=== PATIENT | female | born 1950 | race Two or more races ===

== ENCOUNTER 2024-01-14 10:48 | Outpatient (CLI) | payer MEDICARE ==
[2024-01-14 11:04] LABS: BASOPHILS % (AUTO) 0.5 %; EOSINOPHILS # (AUTO) 0.1 10^3/uL (0.0-0.7); EOSINOPHILS % (AUTO) 0.7 %; HGB - HEMOGLOBIN 12.9 g/dL (12.0-16.0); LYMPHOCYTES # (AUTO) 1.2 10^3/uL (1.5-3.5); MEAN CORPUSCULAR HEMOGLOBIN 27.7 pg (27.0-31.0); MEAN CORPUSCULAR HGB CONC 30.7 g/dL (32.0-36.0); MEAN CORPUSCULAR VOLUME 90.3 fL (81.0-99.0); MEAN PLATELET VOLUME 9.9 fL (7.9-10.8); MONOCYTES # (AUTO) 0.5 10^3/uL (0.0-1.0); MONOCYTES % (AUTO) 6.4 %; NEUTROPHILS # (AUTO) 6.5 10^3/uL (1.5-6.6); NEUTROPHILS % (AUTO) 78.3 %; PLT - PLATELET COUNT 249 10^3/uL (130-450); RED BLOOD COUNT 4.65 10^6/uL (4.20-5.40); RED CELL DISTRIBUTION WIDTH 13.3 % (12.0-15.0); WHITE BLOOD COUNT 8.3 x10^3/uL (4.8-10.8)
[2024-01-14 11:22] LABS: ALBUMIN 4.3 g/dL (3.2-5.5); ALBUMIN/GLOBULIN RATIO 1.4 (1.0-2.2); ALKALINE PHOSPHATASE 102 IU/L (42-121); ALT ALANINE AMINOTRANSFERASE 11 IU/L (10-60); AST ASPARTATE AMINOTRANSFERASE 15 IU/L (10-42); BILIRUBIN,TOTAL 0.5 mg/dL (0.2-1.0); BUN - BLOOD UREA NITROGEN 16 mg/dL (6-20); CALCIUM 10.1 mg/dL (8.5-10.3); CARBON DIOXIDE - CO2 28 mmol/L (21-32); CHLORIDE 104 mmol/L (101-111); CHOLESTEROL 209 mg/dL; CREATININE 0.7 mg/dL (0.6-1.3); GFR - MDRD 82 (>89); GLUCOSE 114 mg/dL (74-104); HDL CHOLESTEROL 70 mg/dL; LDL CHOLESTEROL,CALCULATED 103 mg/dL; LDL/HDL RATIO 1.5 (<4.4); POTASSIUM 4.4 mmol/L (3.5-4.5); SODIUM 138 mmol/L (135-145); TOTAL PROTEIN 7.3 g/dL (6.4-8.9); TRIGLYCERIDES 181 mg/dL (48-352); VLDL CHOLESTEROL 36 mg/dL
[2024-01-14 11:33] LABS: THYROID STIMULATING HORMONE 0.69 uIU/mL (0.34-5.60)
[2024-01-14 12:04] LABS: ESTIMATED AVERAGE GLUCOSE 126 mg/dL (70-100)
--- NOTE | 2024-01-14 14:33 | XRAY Report ---
PROCEDURE: Knee 1-2V BL INDICATIONS: BILATERAL DJD TECHNIQUE: 2 views of the knee(s) were acquired. COMPARISON: None. FINDINGS: Bones: No fractures or dislocations. No suspicious bony lesions. The left knee demonstrates mild to moderate tricompartmental arthritic change most severe medially. Minimal periarticular osteophytes are present without erosions. Similar appearance is noted on the right also most severe medially. Bi lateral minimal patellar osteophytes are present. Soft tissues: No knee joint effusion. No suspicious soft tissue calcifications or masses. 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 Reviewed by: Precious Bryson MD on 01/14/2024 2:32 PM PDT Approved by: Precious Bryson MD on 01/14/2024 2:32 PM PDT Station ID: [id number]
--- NOTE | 2024-01-14 14:51 | XRAY Report ---
PROCEDURE: Chest 2V INDICATIONS: PLEURAL EFFUSION TECHNIQUE: 2 views of the chest were acquired. COMPARISON: None. FINDINGS: Surgical changes and devices: None. Lungs and pleura: Mild left and minimal right pleural effusions. Minimal patchy opacities are presen t in the right base and retrocardiac region. Mediastinum: Mediastinal contours appear normal. Heart size is normal. Bones and chest wall: No suspicious bony lesions. Overlying soft tissues appear unremarkable. IMPRESSION: Minimal to mild bilateral effusions with bilateral patchy opacities as above suspicious for developin g pneumonia. Reviewed by: Precious Bryson MD on 01/14/2024 2:49 PM PDT Approved by: Precious Bryson MD on 01/14/2024 2:49 PM PDT Station ID: [id number]
== END 2024-01-14 10:49 | disposition home or self-care (01) ==
LOC: LAB 10:48
PROVIDERS: ATTEND Physician Assistant Medical
DX: Z13.9 Encounter for screening, unspecified (principal); M17.0 Bilateral primary osteoarthritis of knee; J90 Pleural effusion, not elsewhere classified
CPT/HCPCS: 36415; 80053; 80061; 83036; 83721; 84443; 85025

== ENCOUNTER 2024-02-04 16:05 | Outpatient (CLI) | payer MEDICARE ==
--- NOTE | 2024-02-06 10:34 | CT Report ---
PROCEDURE: Chest WO INDICATIONS: PLEURAL EFFUSION TECHNIQUE: A CT scan of the chest was performed. Intravenous contrast media was not administered. Images were re corded and evaluated at appropriate window settings. Reformats: axial MIP of the chest, coronal and s agittal. For radiation dose reduction, the following was used: automated exposure control, adjustment of mA and/or kV according to patient size. COMPARISON: Chest x-ray, 01/14/2024. FINDINGS: Image quality: Diagnostic. Chest wall and lower neck: There is a 1.7 cm nodule in the posterior right thyroid lobe. No axillary or supraclavicular adenopathy by size. Right mastectomy. Bilateral breast implants. Lungs and pleura: Small loculated left pleural effusion and trace right protrusion with associated pl eural thickening. There is airspace opacity in the left lower lobe. Subpleural scars and atelectasis in lingula, right middle lobe and right lower lobe. There is a 2.6 mm lung nodule in the left lower lobe, most likely r ound atelectasis. A 0.7 cm nodule is seen in the right lower lobe (series 4 image 54). No consolidation. No pleural effusions. No pneumothorax. No suspicious pulmonary nodules which requi re follow up. Mediastinum: Heart size is normal. No pericardial effusion. No large vessel abnormality. There are mi ldly enlarged mediastinal nodes. A 1 cm right paratracheal lymph node is identified. There is a 1.1 c m subcarinal lymph node. Bones: There are sclerotic lesions in L1 and L2 vertebral bodies. Upper Abdomen: Unremarkable. IMPRESSION: 1. Small loculated left effusion and trace right pleural effusion with associated pleural thickening. 2. Airspace opacity in the left lower lobe compatible with pneumonia or aspiration. 3. Round atelectasis in the left lower lobe. 4. A 0.7 cm nodule in the right lower lobe. Please see in close follow-up recommendation. 5. Mildly enlarged mediastinal lymph node, most likely reactive. 6. A 1.7 cm right thyroid nodule. Recommend thyroid ultrasound for follow-up. 7. Sclerotic lesions in L1 and L2 vertebral bodies. Differential diagnoses are metastatic disease [facility] [place]. If there is personal history of cancer, recommend whole-body bone scan for further evaluation. Fleischner Society criteria for SOLID lung nodule followup. Nodule size (mm)Low-risk patientHigh-risk patient "d4No follow-up neededFollow-up at 12 mo; if no change, no further follow-up >3-1Ldmlei-pl CT at 12 mo; if no change, no further follow-up needed.Initial follow-up CT at 6-12 mo, then 18-24 mo if no change. >6-8Initial follow-up CT at 6-12 mo, then 18-24 mo if no change. Initial follow-up CT at 3-6 mo, then 9-12 mo and 24 mo if no change. >8Follow-up CT at 3, 9, 24 mo. Or PET and/or biopsy.Same as for low-risk pts. Reviewed by: Jessenia Piper MD on 02/06/2024 10:33 AM PDT Approved by: Jessenia Piper MD on 02/06/2024 10:33 AM PDT Station ID: [id number]
== END 2024-02-04 16:06 | disposition home or self-care (01) ==
LOC: DI 16:05
PROVIDERS: ATTEND Physician Assistant Medical
DX: J90 Pleural effusion, not elsewhere classified (principal); R91.8 Other nonspecific abnormal finding of lung field; E04.1 Nontoxic single thyroid nodule; M89.9 Disorder of bone, unspecified; Z85.3 Personal history of malignant neoplasm of breast

== ENCOUNTER 2024-02-29 18:27 | Outpatient (CLI) | payer MEDICARE ==
--- NOTE | 2024-03-01 01:10 | Ultrasound Report ---
PROCEDURE: Soft Tissue Head or Neck INDICATIONS: THYROID NODULE TECHNIQUE: Real-time scanning was performed of the thyroid gland, with image documentation. COMPARISON: CT chest 02/04/2024 FINDINGS: Right: Thyroid lobe measures 4.6 x 2.1 x 2.1 cm. Left: Thyroid lobe measures 4.5 x 2.3 x 1.8 cm Isthmus: 0.3 cm thick. Echotexture: Homogeneous. Nodule number: One Location: Right posterior Size: 2.7 x 1.1 x 2.0 cm. Composition: Solid. Echogenicity: Hypoechoic. Shape: wider than tall (0 points). Margins: Smooth (0 points). Echogenic foci: None (0 points). Total points: 4 ACR TI-RADS category: 4 Nodule number: Two Location: Right inferior Size: 0.5 cm. Composition: Solid. Echogenicity: Isoechoic. Shape: wider than tall (0 points). Margins: Smooth (0 points). Echogenic foci: None (0 points). Total points: 3 ACR TI-RADS category: 3 Nodule number: Three Location: Left inferior Size: 0.5 cm. Composition: Solid. Echogenicity: Hypoechoic. Shape: wider than tall (0 points). Margins: Smooth (0 points). Echogenic foci: None (0 points). Total points: 3 ACR TI-RADS category: 3 IMPRESSION: Right-sided 2.7 cm category 4 solid nodule. Best practices suggest FNA ACR TI-RADS definitions and recommendations: TI-RADS 1 (benign): 0 points. FNA not needed. TI-RADS 2 (not suspicious): 2 points. FNA not needed. TI-RADS 3 (mildly suspicious): 3 points. "FNA if 2.5 cm or larger, follow up if 1.5 cm or larger (at 1, 3, and 5 years). TI-RADS 4 (moderately suspicious): 4-6 points. "FNA if 1.5 cm or larger, follow up if 1 cm or larger (at 1, 2, 3, and 5 years). TI-RADS 5 (highly suspicious): 7 points or more. "FNA if 1 cm or larger, follow up if 0.5 cm or larger (every year for 5 years). Reviewed by: Carl Thayer MD on 03/01/2024 12:09 AM AKDT Approved by: Carl Thayer MD on 03/01/2024 12:09 AM YULY Station ID: [id number]
== END 2024-02-29 18:28 | disposition home or self-care (01) ==
LOC: DI 18:27
PROVIDERS: ATTEND Physician Assistant Medical
DX: E04.2 Nontoxic multinodular goiter (principal)

== ENCOUNTER 2024-03-13 14:03 | Outpatient (CLI) | payer MEDICARE ==
--- NOTE | 2024-03-13 21:51 | DEXA Report ---
PROCEDURE: Dexa Spine and/or Hip INDICATIONS: POST MENOPAUSAL TECHNIQUE: Dual energy x-ray absorptiometry (DXA) was performed on a My[employer] System. Regions measur ed are the AP Spine, femoral neck, and if needed forearm. COMPARISON: None FINDINGS: Lumbar Spine: Bone Mineral Density: 1.180 g/cm/cm,T score: 0.0. Left Femoral Neck: Bone Mineral Density: 0.809 g/cm/cm, T score: -1.6. Left Hip: Bone Mineral Density: 0.891 g/cm/cm,T score: -0.9. (T score greater or equal to -1.0: NORMAL) (T score from -1.1 to -2.4: OSTEOPENIA) (T score less than or equal to -2.5 to: OSTEOPOROSIS) Impression: By WHO criteria, this patient has low bone density (osteopenia). Patients with diagnosis of osteoporosis or osteopenia should have regular bone mineral density assess ment. For those eligible for Medicare, routine testing is allowed once every 2 years. Testing frequ ency can be increased for patients who have rapidly progressing disease or for those who are receivin g medical therapy to restore bone mass. Reviewed by: Delfin Horne MD on 03/13/2024 9:50 PM PDT Approved by: Delfin Horne MD on 03/13/2024 9:50 PM PDT Station ID: [id number]
== END 2024-03-13 14:04 | disposition home or self-care (01) ==
LOC: DI 14:03
PROVIDERS: ATTEND Physician Assistant Medical
DX: Z13.9 Encounter for screening, unspecified (principal); M85.88 Other specified disorders of bone density and structure, other site; Z78.0 Asymptomatic menopausal state